=== PATIENT | male | born 2000 | race African-American/Black ===

== ENCOUNTER 2023-01-16 16:28 | Emergency (ER) | payer SELFPAY ==
[~2023-01-16] VITALS: Ht 188 cm; Wt 82.1 kg
[2023-01-16] MEDS ORDERED: HYDROCODONE/APAP 5/325MG TABLET PO ONE (17:00)
[2023-01-16] MEDS ORDERED: HYDROCODONE/APAP 5/325MG TABLET ONE (17:53)
[2023-01-16] MEDS ORDERED: TRAM50TA2 PO (19:35)
[2023-01-16 19:58] VITALS: BP 128/71; TEMP 98.1; O2SAT 100
== END 2023-01-16 19:58 | disposition home or self-care (01) ==
LOC: ER 16:43
DX: S62.291A Other fracture of first metacarpal bone, right hand, initial encounter for closed fracture (principal); Z79.899 Other long term (current) drug therapy; Z60.2 Problems related to living alone; W17.89XA Other fall from one level to another, initial encounter; Y93.51 Activity, roller skating (inline) and skateboarding; Y92.89 Other specified places as the place of occurrence of the external cause; Y99.8 Other external cause status
CPT/HCPCS: 73130-TC